=== PATIENT | male | born 1975 | race African-American/Black ===

== ENCOUNTER 2017-10-13 13:43 | Emergency (ER) | payer OTHER ==
[~2017-10-13] VITALS: Ht 167.6 cm; Wt 95.3 kg
[2017-10-13] MEDS ORDERED: METFORMIN HCL500 M1 ORAL (13:53)
[2017-10-13 14:13] VITALS: BP 171/108
--- NOTE | 2017-10-13 14:21 | Emergency Room Report ---
History of Present Illness General Chief Complaint: Male Urogenital Problems Source: Patient Present Illness HPI 41-year-old male presents to the emergency department complaining of dysuria since yesterday that he rates as 5/10 in severity describes burning sensation with urination. Patient denies hematuria or frequency. Patient states he has a history of diabetes however he states his sugars have been well controlled. Patient reports that he takes insulin. Patient denies fevers, chills or low back pain. Patient denies testicular pain or swelling. Patient reports unprotected intercourse only with his . Patient denies penile discharge or swollen tender lymph nodes. he denies rash. he states the onset of his symptoms was after he had to hold his urine for long period of time yesterday. Denies CP, Palpitations, LOC, AMS, dizziness, Changes in Vision, Sensation, paresthesias, or a sudden severe headache. Allergies: Coded Allergies: SULFAMETHOXAZOLE (Verified Allergy, Unknown, 10/13/17) itching TRIMETHOPRIM (Verified Allergy, Unknown, 10/13/17) itching Patient History Past Medical History: see triage record Past Surgical History: none Pertinent Family History: none Reviewed Nursing Documentation: PMH: Agreed, PSxH: Agreed Nursing Documentation-PMH Past Medical History: No History, Except For Hx Hypertension: Yes Hx Diabetes: Yes Review of Systems All Other Systems: negative except mentioned in HPI Physical Exam Vital Signs Date Time Temp Pulse Resp B/P (MAP) Pulse Ox O2 Delivery O2 Flow Rate FiO2 10/13/17 13:49 98.3 86 16 173/111 96 Room Air 98.2 Sp02 EP Interpretation: reviewed, normal General Appearance: no apparent distress, alert, GCS 15, non-toxic Head: normocephalic, atraumatic ENT: hearing grossly normal, normal voice Neck: full range of motion Respiratory: lungs clear, normal breath sounds, speaking full sentences Cardiovascular #1: regular rate, rhythm Genitourinary: normal inspection, no CVA tenderness Musculoskeletal: back normal, gait/station normal, normal range of motion, non- tender Neurologic: alert, oriented x3, responsive, motor strength/tone normal, sensory intact, speech normal, grossly normal Psychiatric: judgement/insight normal Skin: normal color, no rash, warm/dry, well hydrated Lymphatic: no adenopathy Medical Decision Making PA Attestation Dr. velásquez is my supervising Physician whom patient management has been discussed with. Diagnostic Impression: Primary Impression: Dysuria ER Course 41-year-old male presents to the emergency department complaining of dysuria since yesterday that he rates as 5/10 in severity describes burning sensation with urination. Patient denies hematuria or frequency. Patient states he has a history of diabetes however he states his sugars have been well controlled. Patient reports that he takes insulin. Patient denies fevers, chills or low back pain. Patient denies testicular pain or swelling. Patient reports unprotected intercourse only with his . Patient denies penile discharge or swollen tender lymph nodes. he denies rash. he states the onset of his symptoms was after he had to hold his urine for long period of time yesterday. Denies CP, Palpitations, LOC, AMS, dizziness, Changes in Vision, Sensation, paresthesias, or a sudden severe headache. Ddx considered but are not limited to UTi , Urethritis, LGV, STI, Stone, Cystitis, prostatitis Vital signs: are WNL, pt. is afebrile H&PE are most consistent with Dysuria in person over age of 35. ORDERS: - UA : Most indicative of contamination: presence of equal amounts of bacteria and squamous cells, no elevation in inflammatory markers, nitrite negative. ED INTERVENTIONS: Pyridium PO - Pt. declines STD prophylaxis. DISCHARGE: At this time pt. is stable for d/c to home. Will provide printed patient care instructions, and any necessary prescriptions. Care plan and follow up instructions have been discussed with the patient prior to discharge. Labs Test 10/13/17 14:15 Urine Color Pale yellow Urine Appearance Clear Urine pH 6 (4.5-8.0) Urine Specific [place] 1.020 (1.005-1.035) Urine Protein Negative (NEGATIVE) Urine Glucose (UA) 2+ (NEGATIVE) Urine Ketones Negative (NEGATIVE) Urine Occult Blood 1+ (NEGATIVE) Urine Nitrite Negative (NEGATIVE) Urine Bilirubin Negative (NEGATIVE) Urine Urobilinogen Normal MG/DL (0.0-1.0) Urine Leukocyte Esterase Negative (NEGATIVE) Urine RBC 0-2 /HPF (0 - 0) Urine WBC 0-2 /HPF (0 - 0) Urine Squamous Epithelial Cells Occasional /LPF Urine Bacteria Occasional /HPF (NONE) Last Vital Signs Date Time Temp Pulse Resp B/P (MAP) Pulse Ox O2 Delivery O2 Flow Rate FiO2 10/13/17 14:13 98.0 77 16 171/108 96 Room Air 98.0 Disposition: HOME, SELF-CARE Condition: Stable Scripts Phenazopyridine Hcl* (PYRIDIUM*) 200 Mg Tablet 200 MG ORAL THREE TIMES A DAY for 3 Days, #9 TAB 0 Refills Prov: Gaby Blum 10/13/17 Patient Instructions: Dysuria Additional Instructions: Take medications as directed. Pyridium will cause your urine to change color (Red/[place]), this is a normal side effect of the medication. Follow up with a Primary Care Provider in 3-5 days, even if your symptoms have resolved. --Please review list of primary care clinics, if you do not already have a primary care provider Return sooner to ED if new symptoms occur, or current symptoms become worse. - Please note that this Emergency Department Report was dictated using [employer] administrator technology software, occasionally this can lead to erroneous entry secondary to interpretation by the dictation equipment. Gaby Blum Oct 13, 2017 14:21
[2017-10-13] MEDS ORDERED: Phenazopyridine 200mg tab ORAL ONE (14:30)
[2017-10-13 14:44] LABS: APPEARANCE,URINE CLEAR; BILIRUBIN, URINE NEGATIVE (NEGATIVE); COLOR,URINE PALE YELLOW; GLUCOSE, URINE (UA) 2+ (NEGATIVE); KETONES,URINE NEGATIVE (NEGATIVE); LEUKOCYTE ESTERASE ,URINE NEGATIVE (NEGATIVE); NITRITE,URINE NEGATIVE (NEGATIVE); PH,URINE 6 (4.5-8.0); PROTEIN,URINE NEGATIVE (NEGATIVE); UROBILINOGEN,URINE NORMAL MG/DL (0.0-1.0)
[2017-10-13] MEDS ORDERED: PHENAZOPYRIDIN200 MG ORAL (15:06)
[2017-10-13 15:17] VITALS: BP 181/109
== END 2017-10-13 15:17 | disposition home or self-care (01) ==
LOC: EMR 14:25
DX: R30.0 Dysuria (principal); I10 Essential (primary) hypertension; E11.9 Type 2 diabetes mellitus without complications; Z88.2 Allergy status to sulfonamides
CPT/HCPCS: 81003; 99283

== ENCOUNTER 2017-10-22 15:19 | Emergency (ER) | payer OTHER ==
[~2017-10-22] VITALS: Ht 170.2 cm; Wt 116.1 kg
[~2017-10-22 15:19] MED LIST: METFORMIN HCL500 M1 ORAL; PHENAZOPYRIDIN200 MG ORAL
[2017-10-22] MEDS ORDERED: COZAAR50 MG ORAL (15:56)
[2017-10-22 16:36] LABS: APPEARANCE,URINE CLEAR; BILIRUBIN, URINE NEGATIVE (NEGATIVE); COLOR,URINE YELLOW; GLUCOSE, URINE (UA) NEGATIVE (NEGATIVE); KETONES,URINE NEGATIVE (NEGATIVE); LEUKOCYTE ESTERASE ,URINE 1+ (NEGATIVE); NITRITE,URINE NEGATIVE (NEGATIVE); PH,URINE 6 (4.5-8.0); PROTEIN,URINE 2+ (NEGATIVE); UROBILINOGEN,URINE 1 MG/DL (0.0-1.0)
[2017-10-22] MEDS ORDERED: METRONIDAZOLE500 MG ORAL (17:16)
[2017-10-22] MEDS ORDERED: KEFLEX500 MG ORAL (17:16)
[2017-10-22 17:35] VITALS: BP 157/109
--- NOTE | 2017-10-23 15:28 | Emergency Room Report ---
History of Present Illness General Chief Complaint: Headache Source: Patient Present Illness HPI 41-year-old male presents ED for evaluation. Patient is complaining of headache 1 week. Was seen here approximately one week ago for headache and dysuria. Was prescribed Pyridium. States his urine is now red. States headache persists. Throbbing, 5 out of 10, nonradiating. Denies photophobia or blurry vision. Denies nausea or vomiting. Denies neck stiffness. States that his also has similar presentation and dysuria. Also noticing some discharge. She is here being evaluated by the PA. No other aggravating or relieving factors. Denies any other associated symptoms Allergies: Coded Allergies: SULFAMETHOXAZOLE (Verified Allergy, Unknown, 10/13/17) itching TRIMETHOPRIM (Verified Allergy, Unknown, 10/13/17) itching Patient History Past Medical History: DM, HTN Past Surgical History: none Pertinent Family History: none Social History: Denies: smoking, alcohol use, drug use Immunizations: UTD Reviewed Nursing Documentation: PMH: Agreed, PSxH: Agreed Nursing Documentation-PMH Hx Hypertension: Yes Hx Diabetes: Yes Review of Systems All Other Systems: negative except mentioned in HPI Physical Exam Vital Signs Date Time Temp Pulse Resp B/P (MAP) Pulse Ox O2 Delivery O2 Flow Rate FiO2 10/22/17 15:47 98.9 88 16 152/110 95 Room Air 99.0 Sp02 EP Interpretation: reviewed, normal General Appearance: no apparent distress, alert, GCS 15, non-toxic Head: normocephalic, atraumatic Eyes: bilateral eye normal inspection, bilateral eye PERRL ENT: hearing grossly normal, normal pharynx, no angioedema, normal voice Neck: full range of motion, supple/symm/no masses Respiratory: chest non-tender, lungs clear, normal breath sounds, speaking full sentences Cardiovascular #1: regular rate, rhythm, no edema Cardiovascular #2: 2+ carotid (R), 2+ carotid (L), 2+ radial (R), 2+ radial (L) , 2+ dorsalis pedis (R), 2+ dorsalis pedis (L) Gastrointestinal: normal bowel sounds, non tender, soft, non-distended, no guarding, no rebound Rectal: deferred Genitourinary: normal inspection, no CVA tenderness Musculoskeletal: back normal, gait/station normal, normal range of motion, non- tender Neurologic: alert, oriented x3, responsive, motor strength/tone normal, sensory intact, speech normal Psychiatric: judgement/insight normal, memory normal, mood/affect normal, no suicidal/homicidal ideation Reflexes: 3+ bicep (R), 3+ bicep (L), 3+ tricep (R), 3+ tricep (L), 3+ knee (R) , 3+ knee (L) Skin: normal color, no rash, warm/dry, well hydrated Lymphatic: no adenopathy Medical Decision Making Diagnostic Impression: Primary Impression: UTI (urinary tract infection) Qualified Codes: N39.0 - Urinary tract infection, site not specified ER Course Hospital Course 41year-old male presents to ED complaining of dysuria with headache Differential diagnoses include: UTI, cystitis, pyelonephritis Clinical course Patient placed on stretcher. After initial history and physical I ordered UA UA + bacteria. Patient's is being evaluated by PA. Given the discharge she is experiencing is concern for BV and will prescribe Flagyl. I will also prescribe Flagyl to the patient along with antibiotics Diagnosis - UTI Stable and discharged home with prescriptions for Rx Keflex, Flagyl. Instructed to followup with PMD. Return to ED if symptoms recur or worsen Labs Test 10/22/17 16:19 Urine Color Yellow Urine Appearance Clear Urine pH 6 (4.5-8.0) Urine Specific [place] 1.020 (1.005-1.035) Urine Protein 2+ (NEGATIVE) Urine Glucose (UA) Negative (NEGATIVE) Urine Ketones Negative (NEGATIVE) Urine Occult Blood 2+ (NEGATIVE) Urine Nitrite Negative (NEGATIVE) Urine Bilirubin Negative (NEGATIVE) Urine Urobilinogen 1 MG/DL (0.0-1.0) Urine Leukocyte Esterase 1+ (NEGATIVE) Urine RBC 2-4 /HPF (0 - 0) Urine WBC 2-4 /HPF (0 - 0) Urine Squamous Epithelial Cells None /LPF (NONE/OCC) Urine Bacteria Few /HPF (NONE) Last Vital Signs Date Time Temp Pulse Resp B/P (MAP) Pulse Ox O2 Delivery O2 Flow Rate FiO2 10/22/17 17:35 36.24848 85 18 157/109 95 Room Air 208.6 Status: improved Disposition: HOME, SELF-CARE Condition: Stable Scripts Metronidazole* (FLAGYL*) 500 Mg Tablet 500 MG ORAL THREE TIMES A DAY, #21 TAB Prov: OPAL LYNCH M.D. 10/22/17 Cephalexin* (KEFLEX*) 500 Mg Capsule 500 MG ORAL Q6H, #28 CAP 0 Refills Prov: OPAL LYNCH M.D. 10/22/17 Referrals: Anh SILVAREFERRING (PCP) Patient Instructions: Dysuria OPAL LYNCH M.D. Oct 23, 2017 15:28
== END 2017-10-22 17:40 | disposition home or self-care (01) ==
LOC: EMR 17:36
DX: N39.0 Urinary tract infection, site not specified (principal); R51 Headache; I10 Essential (primary) hypertension; E11.9 Type 2 diabetes mellitus without complications; Z88.2 Allergy status to sulfonamides
CPT/HCPCS: 81003; 99284

== ENCOUNTER 2017-11-26 11:51 | Emergency (ER) | payer OTHER ==
[~2017-11-26] VITALS: Ht 170.2 cm; Wt 95.3 kg
[~2017-11-26 11:51] MED LIST changes: +COZAAR50 MG ORAL; +KEFLEX500 MG ORAL; +METRONIDAZOLE500 MG ORAL
[2017-11-26] MEDS ORDERED: LANTUS SOL100 UNIT/1 SUBQ (11:59)
[2017-11-26] MEDS ORDERED: PRAVACHOL40 MG ORAL (11:59)
[2017-11-26 12:16] VITALS: BP 160/97
--- NOTE | 2017-11-26 12:20 | Emergency Room Report ---
History of Present Illness General Chief Complaint: Eye Problems Source: Patient, Medical Record Present Illness HPI 42-year-old male presents to the emergency department complaining of left eyelid swelling, increased lacrimation and intermittent blurry vision due to tearing. Patient denies pain he denies itching at the moment states he had some earlier. Denies discharge or tenderness. Patient reports that yesterday he noticed that his eyelid was very red. Pt does not recall anything getting into his eyes. Patient denies recent URI. Denies: Scleral Redness, Loss of vision, Floaters, Flashing lights, or Diplopia. Allergies: Coded Allergies: SULFAMETHOXAZOLE (Verified Allergy, Unknown, 10/13/17) itching TRIMETHOPRIM (Verified Allergy, Unknown, 10/13/17) itching Patient History Past Medical History: see triage record Past Surgical History: none Pertinent Family History: none Reviewed Nursing Documentation: PMH: Agreed; PSxH: Agreed Nursing Documentation-PMH Past Medical History: No History, Except For Hx Hypertension: Yes Hx Diabetes: Yes Review of Systems All Other Systems: negative except mentioned in HPI Physical Exam Vital Signs Date Time Temp Pulse Resp B/P (MAP) Pulse Ox O2 Delivery O2 Flow Rate FiO2 11/26/17 11:55 98.1 72 18 160/97 95 Room Air 98.1 Sp02 EP Interpretation: reviewed, normal General Appearance: no apparent distress, alert, GCS 15, non-toxic Head: normocephalic, atraumatic Eyes: bilateral eye normal inspection, bilateral eye PERRL, bilateral eye EOMI , bilateral eye other - 20/20 bilaterally, Lid Flip exam was un-remarkable, no erythema noted. edema of the upperlid which disperses with pressure. ENT: hearing grossly normal, normal voice Neck: full range of motion Respiratory: lungs clear, normal breath sounds, speaking full sentences Cardiovascular #1: regular rate, rhythm Musculoskeletal: back normal, gait/station normal, normal range of motion, non- tender Neurologic: alert, oriented x3, responsive, motor strength/tone normal, sensory intact, speech normal, grossly normal Psychiatric: judgement/insight normal Skin: normal color, no rash, warm/dry, well hydrated Lymphatic: no adenopathy Medical Decision Making PA Attestation Dr. Coffey is my supervising Physician whom patient management has been discussed with. Diagnostic Impression: Primary Impression: Blepharitis of left upper eyelid Qualified Codes: H01.004 - Unspecified blepharitis left upper eyelid ER Course 42-year-old male presents to the emergency department complaining of left eyelid swelling, increased lacrimation and intermittent blurry vision due to tearing. Patient denies pain he denies itching, discharge or tenderness. Patient reports that yesterday he noticed that his eyelid was very red. Patient denies recent URI.Denies: Scleral Redness, Loss of vision, Floaters, Flashing lights, or Diplopia. - Pt Denies Contact lens use. Ddx considered but are not limited to: corneal abrasion, acute glaucoma, globe rupture, FB, Corneal Ulcer, conjunctivitis. Iridis Vital signs: are WNL, pt. is afebrile H&PE are most consistent with: corneal abrasion ORDERS: -None required at this time, the dx is clinical. ED INTERVENTIONS: none at this time. d/w pt. conservative treatment, and to follow up with a primary care provider or child nurse. pt given a list of primary care clinics for follow up. d/w pt. to return to the ED with worsening or new symptoms. DISCHARGE: At this time pt. is stable for d/c to home. Will provide printed patient care instructions, and any necessary prescriptions. Care plan and follow up instructions have been discussed with the patient prior to discharge. . Last Vital Signs Date Time Temp Pulse Resp B/P (MAP) Pulse Ox O2 Delivery O2 Flow Rate FiO2 11/26/17 12:16 98.1 18 160/97 95 Room Air 98.1 11/26/17 11:55 72 Disposition: HOME, SELF-CARE Condition: Stable Scripts Erythromycin Base (Erythromycin) 1 Gm Oint...g. 1 APPLIC OP TID for 7 Days, #1 GM Prov: Gaby Blum P.A. 11/26/17 Diphenhydramine Hcl (BENADRYL ALLERGY) 25 Mg Tablet 25 MG PO Q6HR for 2 Days, #10 TAB Prov: Gaby Blum P.A. 11/26/17 Olopatadine Hcl (PATADAY) 2.5 Ml Drops 1 DROP OP DAILY, #2.5 ML Prov: Gaby Blum P.A. 11/26/17 Patient Instructions: Blepharitis Additional Instructions: Take medications as directed. Follow up with a Primary Care Provider or [employer]ified [employer] Workers In [employer] Care in 3 days, even if your symptoms have resolved. --Please review list of primary care clinics, if you do not already have a primary care provider Return sooner to ED if new symptoms occur, or current symptoms become worse. Do not drink alcohol, drive, or operate heavy machinery while taking benadryl as this may cause drowsiness. - Please note that this Emergency Department Report was dictated using [employer] administrator technology software, occasionally this can lead to erroneous entry secondary to interpretation by the dictation equipment. Gaby Blum Nov 26, 2017 12:20
[2017-11-26] MEDS ORDERED: BENADRYL ALLERG25 M1 PO (12:37)
[2017-11-26] MEDS ORDERED: PATADAY2.5 ML OP (12:37)
[2017-11-26] MEDS ORDERED: ERYTHROMYCIN1 G1 OP (12:37)
[2017-11-26 12:55] VITALS: BP 154/91
== END 2017-11-26 12:55 | disposition home or self-care (01) ==
LOC: EMR 12:45
DX: H01.004 Unspecified blepharitis left upper eyelid (principal); I10 Essential (primary) hypertension; E11.9 Type 2 diabetes mellitus without complications; Z88.2 Allergy status to sulfonamides
CPT/HCPCS: 99284

== ENCOUNTER 2018-07-31 13:26 | Emergency (ER) | payer OTHER ==
[~2018-07-31] VITALS: Ht 170.2 cm; Wt 90.7 kg
[~2018-07-31 13:26] MED LIST changes: +BENADRYL ALLERG25 M1 PO; +ERYTHROMYCIN1 G1 OP; +LANTUS SOL100 UNIT/1 SUBQ; +PATADAY2.5 ML OP; +PRAVACHOL40 MG ORAL
[2018-07-31 13:55] VITALS: BP 149/86
[2018-07-31] MEDS ORDERED: Dexamethasone 4mg/ml vial IM ONE (14:45)
[2018-07-31] MEDS ORDERED: Ketorolac 30mg Inj IM ONE (14:45)
--- NOTE | 2018-07-31 14:51 | Emergency Room Report ---
History of Present Illness General Chief Complaint: Fever Source: Patient Present Illness HPI 42-year-old male presents to the emergency department complaining of 10 out of 10 severity sore throat with body aches and fever since this morning. Patient denies recent travel or ill contacts. Patient does state that his daughter is very young and usually gets other family members sick without having symptoms herself. Patient denies neck pain or stiffness he denies photophobia, dizziness , nausea or vomiting. His pain is exacerbated upon swallowing. He denies cough. Denies ear pain, Denies Cp, Palpitations, LOC, AMS, seizures, paresthesias, or changes in Hearing or vision, no Sudden severe BARRIOS. Denies hx of smoking, asthma or COPD. Allergies: Coded Allergies: SULFAMETHOXAZOLE (Verified Allergy, Unknown, 10/13/17) itching TRIMETHOPRIM (Verified Allergy, Unknown, 10/13/17) itching Patient History Past Medical History: see triage record Past Surgical History: none Pertinent Family History: none Reviewed Nursing Documentation: PMH: Agreed; PSxH: Agreed Nursing Documentation-PMH Past Medical History: No History, Except For Hx Hypertension: Yes Hx Diabetes: Yes Review of Systems All Other Systems: negative except mentioned in HPI Physical Exam Vital Signs Date Time Temp Pulse Resp B/P (MAP) Pulse Ox O2 Delivery O2 Flow Rate FiO2 07/31/18 13:42 102.9 100 18 154/88 97 Room Air Sp02 EP Interpretation: reviewed, normal General Appearance: alert, GCS 15, non-toxic, mild distress Head: normocephalic, atraumatic Eyes: bilateral eye normal inspection, bilateral eye PERRL ENT: hearing grossly normal, normal voice, uvula midline, moist mucus membranes , tonsillar swelling, pharyngeal erythema Neck: full range of motion Respiratory: lungs clear, normal breath sounds, no wheezing, speaking full sentences Cardiovascular #1: regular rate, rhythm Musculoskeletal: back normal, gait/station normal, normal range of motion, non- tender Neurologic: alert, oriented x3, responsive, motor strength/tone normal, sensory intact, normal gait, speech normal, grossly normal Psychiatric: judgement/insight normal Skin: normal color, no rash, warm/dry, well hydrated Medical Decision Making PA Attestation Dr. Sage is my supervising Physician whom patient management has been discussed with. Diagnostic Impression: Primary Impression: Pharyngitis, acute Qualified Codes: J02.0 - Streptococcal pharyngitis ER Course 42-year-old male presents to the emergency department complaining of 10 out of 10 severity sore throat with body aches and fever since this morning. Patient denies recent travel or ill contacts. Patient does state that his daughter is very young and usually gets other family members sick without having symptoms herself. Patient denies neck pain or stiffness he denies photophobia, dizziness , nausea or vomiting. His pain is exacerbated upon swallowing. He denies cough. Denies ear pain, Denies Cp, Palpitations, LOC, AMS, seizures, paresthesias, or changes in Hearing or vision, no Sudden severe BARRIOS. Denies hx of smoking, asthma or COPD. Ddx considered but are not limited to: pharyngitis, strep, PAYROLL MACHINE OPERATOR, ludwigs angina, URI Vital signs: are WNL, patient is febrile. H&PE are most consistent with: pharyngitis presumed strep. ORDERS: None required at this time as the diagnosis is clinical ED INTERVENTIONS: -Decadron 8mg IM -Toradol 20mg IM -Tylenol PO DISCHARGE: At this time pt. is stable for d/c to home. Will provide printed patient care instructions, and any necessary prescriptions. Care plan and follow up instructions have been discussed with the patient prior to discharge. Last Vital Signs Date Time Temp Pulse Resp B/P (MAP) Pulse Ox O2 Delivery O2 Flow Rate FiO2 07/31/18 13:55 99.3 98 18 149/86 99 Room Air Disposition: HOME, SELF-CARE Condition: Stable Scripts Lidocaine HCl 2% Viscous (Lidocaine HCl 2% Viscous) 100 Ml Solution 10 ML ORAL QID PRN for For Pain, #220 ML Prov: Gaby Blum 07/31/18 Ibuprofen* (MOTRIN*) 600 Mg Tablet 600 MG ORAL THREE TIMES A DAY, #30 TAB 0 Refills Prov: Gaby Blum 07/31/18 Acetaminophen* (TYLENOL EXTRA STRENGTH*) 500 Mg Tablet 500 MG ORAL Q6H PRN for Mild Pain/Temp > 100.5, #20 TAB 0 Refills Prov: Gaby Blum 07/31/18 Amoxicillin/Potassium Clav 875-125* (AUGMENTIN 875-125 TABLET*) 1 Each Tablet 1 TAB ORAL TWICE A DAY for 10 Days, #20 TAB Prov: Gaby Blum 07/31/18 Referrals: NON PHYSICIAN (PCP) Departure Forms: Return to Work Return to Work Date: Aug 05, 2018 Work Restrictions: None Other Restrictions: May return Sooner if Symptoms have resolved. Return to Full Activity: Aug 05, 2018 Patient Instructions: Fever, Adult, [id number], Pharyngitis, [id number] Additional Instructions: Take medications as directed. Follow up with a Primary Care Provider in 3-5 days, even if your symptoms have resolved. --Please review list of primary care clinics, if you do not already have a primary care provider Return sooner to ED if new symptoms occur, or current symptoms become worse. - Please note that this Emergency Department Report was dictated using [employer] inspector technology software, occasionally this can lead to erroneous entry secondary to interpretation by the dictation equipment. Gaby Blum Jul 31, 2018 14:51
[2018-07-31] MEDS ORDERED: IBUPROFEN600 MG ORAL (15:14)
[2018-07-31] MEDS ORDERED: AUGMENTIN 875-1 EAC1 ORAL (15:14)
[2018-07-31] MEDS ORDERED: TYLENOL EXTRA500 MG ORAL (15:14)
[2018-07-31] MEDS ORDERED: LIDOCAINE VISC100 ML ORAL (15:14)
[2018-07-31 15:22] VITALS: BP 146/87
== END 2018-07-31 15:25 | disposition home or self-care (01) ==
LOC: EMR 14:20
DX: J02.9 Acute pharyngitis, unspecified (principal); I10 Essential (primary) hypertension; E11.9 Type 2 diabetes mellitus without complications; Z88.2 Allergy status to sulfonamides
CPT/HCPCS: 96374; 96375; 99284; J1100; J1885

== ENCOUNTER 2018-09-13 17:06 | Emergency (ER) | payer OTHER ==
[~2018-09-13] VITALS: Ht 170.2 cm; Wt 93.0 kg
[~2018-09-13 17:06] MED LIST changes: +AUGMENTIN 875-1 EAC1 ORAL; +IBUPROFEN600 MG ORAL; +LIDOCAINE VISC100 ML ORAL; +TYLENOL EXTRA500 MG ORAL
[2018-09-13 17:19] VITALS: BP 148/90
[2018-09-13] MEDS ORDERED: ASPIR 8181 MG ORAL (17:24)
[2018-09-13] MEDS ORDERED: GLIPIZIDE5 MG ORAL (17:24)
[2018-09-13 17:59] LABS: ANION GAP 6 mmol/L (5-15); BLOOD UREA NITROGEN 11 mg/dL (7-18); CALCIUM 8.3 MG/DL (8.5-10.1); CARBON DIOXIDE 30 MMOL/L (21-32); CHLORIDE 107 MMOL/L (98-107); CREATININE 1.4 MG/DL (0.55-1.30); POTASSIUM 2.9 MMOL/L (3.5-5.1); SODIUM 142 MMOL/L (136-145)
[2018-09-13 18:02] LABS: BASOPHILS % (AUTO) 1.3 % (0.0-2.0); EOSINOPHILS % (AUTO) 2.7 % (0.0-3.0); HEMATOCRIT 41.4 % (42.0-52.0); HEMOGLOBIN 13.3 G/DL (14.2-18.0); LYMPHOCYTES % (AUTO) 38.5 % (20.0-45.0); MEAN CORPUSCULAR VOLUME 76 FL (80-99); MONOCYTES % (AUTO) 8.8 % (1.0-10.0); NEUTROPHILS % (AUTO) 48.7 % (45.0-75.0); PLATELET COUNT 350 K/UL (150-450); RED BLOOD COUNT 5.42 M/UL (4.70-6.10); RED CELL DISTRIBUTION WIDTH 12.6 % (11.6-14.8); WHITE BLOOD COUNT 10.3 K/UL (4.8-10.8)
[2018-09-13 18:04] LABS: ALANINE AMINOTRANSFERASE 48 U/L (12-78); ALBUMIN 3.8 G/DL (3.4-5.0); ALBUMIN/GLOBULIN RATIO 0.9 (1.0-2.7); ALKALINE PHOSPHATASE 75 U/L (46-116); ASPARTATE AMINO TRANSFERASE 21 U/L (15-37); BILIRUBIN,TOTAL 0.6 MG/DL (0.2-1.0)
[2018-09-13] MEDS ORDERED: RANITIDINE HCL150 MG ORAL (18:39)
[2018-09-13 18:46] VITALS: BP 137/85
--- NOTE | 2018-09-13 23:05 | Emergency Room Report ---
History of Present Illness General Chief Complaint: General Complaint Source: Patient, Medical Record Present Illness HPI 42-year-old male presents ED for evaluation. States that he cannot taste anything with his tongue for the last week. Denies any slurred speech or facial droop. Denies any arm or leg weakness. Denies any neck pain blurry vision. States he's been having episodes of nausea and vomiting for the last week. Has not had any vomiting last few days. Feels nauseous. History of acid reflux. Denies abdominal pain. No other aggravating relieving factors. Denies any other associated symptoms Allergies: Coded Allergies: SULFAMETHOXAZOLE (Verified Allergy, Unknown, 10/13/17) itching TRIMETHOPRIM (Verified Allergy, Unknown, 10/13/17) itching Patient History Past Medical History: DM Past Surgical History: none Pertinent Family History: none Social History: Denies: smoking, alcohol use, drug use Immunizations: UTD Reviewed Nursing Documentation: PMH: Agreed; PSxH: Agreed Nursing Documentation-PMH Past Medical History: No History, Except For Hx Hypertension: Yes - high cholesterol Hx Diabetes: Yes Review of Systems All Other Systems: negative except mentioned in HPI Physical Exam Vital Signs Date Time Temp Pulse Resp B/P (MAP) Pulse Ox O2 Delivery O2 Flow Rate FiO2 09/13/18 17:19 98.8 18 148/90 96 Room Air 09/13/18 17:19 83 Sp02 EP Interpretation: reviewed, normal General Appearance: no apparent distress, alert, GCS 15, non-toxic Head: normocephalic, atraumatic Eyes: bilateral eye normal inspection, bilateral eye PERRL ENT: hearing grossly normal, normal pharynx, no angioedema, normal voice Neck: full range of motion, supple/symm/no masses Respiratory: chest non-tender, lungs clear, normal breath sounds, speaking full sentences Cardiovascular #1: regular rate, rhythm, no edema Cardiovascular #2: 2+ carotid (R), 2+ carotid (L), 2+ radial (R), 2+ radial (L) , 2+ dorsalis pedis (R), 2+ dorsalis pedis (L) Gastrointestinal: normal bowel sounds, non tender, soft, non-distended, no guarding, no rebound Rectal: deferred Genitourinary: normal inspection, no CVA tenderness Musculoskeletal: back normal, gait/station normal, normal range of motion, non- tender Neurologic: alert, oriented x3, responsive, boiler house inspector III-XII nml as tested, motor strength/tone normal, sensory intact, speech normal Psychiatric: judgement/insight normal, memory normal, mood/affect normal, no suicidal/homicidal ideation Reflexes: 3+ bicep (R), 3+ bicep (L), 3+ tricep (R), 3+ tricep (L), 3+ knee (R) , 3+ knee (L) Skin: normal color, no rash, warm/dry, well hydrated Lymphatic: no adenopathy Medical Decision Making Diagnostic Impression: Primary Impression: Ageusia Additional Impression: Hypokalemia ER Course Hospital Course 42 yo M presents with nausea, vomiting. no taste with tongue x 1 week differential diagnosis: gastritis, SBO, cholecystits Clinical course Patient placed on stretcher. On laboratory monitor. After initial history, physical exam reveals middle-aged male in no acute distress. Cranial nerves II through XII grossly intact. No slurred speech or facial droop. Motor strength 5 out of 5 in all extremities. No sensory deficits I ordered labs, IV fluids, zofran, EKG Labs - no leukocytosis, K 2.9, LFTs normal Potassium repleted. Discussed findings with patient. I do not suspect CVA . There is no acute neurological deficit. Lack of taste can be secondary to untreated GERD. We will discharge with Zofran, Zantac. We will provide GI referrals. Safe for discharge close outpatient follow-up I feel this is a highly complex case requiring extensive working including EKG/ Rhythm strip, Xray/CT/US, Blood/urine lab work, repeat exams while in ED, and administration of strong opiates/narcotics for pain control, admission to hospital or close patient follow up. Diagnosis - ageusia, hypokalemia Stable and discharged to home with prescriptions for Zantac. Followup with PMD/ GI. Return to ED if symptoms recur or worsen Labs Test 09/13/18 17:40 White Blood Count 10.3 K/UL (4.8-10.8) Red Blood Count 5.42 M/UL (4.70-6.10) Hemoglobin 13.3 G/DL (14.2-18.0) Hematocrit 41.4 % (42.0-52.0) Mean Corpuscular Volume 76 FL (80-99) Mean Corpuscular Hemoglobin 24.5 PG (27.0-31.0) Mean Corpuscular Hemoglobin Concent 32.2 G/DL (32.0-36.0) Red Cell Distribution Width 12.6 % (11.6-14.8) Platelet Count 350 K/UL (150-450) Mean Platelet Volume 5.7 FL (6.5-10.1) Neutrophils (%) (Auto) 48.7 % (45.0-75.0) Lymphocytes (%) (Auto) 38.5 % (20.0-45.0) Monocytes (%) (Auto) 8.8 % (1.0-10.0) Eosinophils (%) (Auto) 2.7 % (0.0-3.0) Basophils (%) (Auto) 1.3 % (0.0-2.0) Sodium Level 142 MMOL/L (136-145) Potassium Level 2.9 MMOL/L (3.5-5.1) Chloride Level 107 MMOL/L (98-107) Carbon Dioxide Level 30 MMOL/L (21-32) Anion Gap 6 mmol/L (5-15) Blood Urea Nitrogen 11 mg/dL (7-18) Creatinine 1.4 MG/DL (0.55-1.30) Estimat Glomerular Filtration Rate > 60 mL/min (>60) Glucose Level 129 MG/DL (74-106) Calcium Level 8.3 MG/DL (8.5-10.1) Total Bilirubin 0.6 MG/DL (0.2-1.0) Aspartate Amino Transf (AST/SGOT) 21 U/L (15-37) Alanine Aminotransferase (ALT/SGPT) 48 U/L (12-78) Alkaline Phosphatase 75 U/L (46-116) Total Protein 7.9 G/DL (6.4-8.2) Albumin 3.8 G/DL (3.4-5.0) Globulin 4.1 g/dL Albumin/Globulin Ratio 0.9 (1.0-2.7) Lipase 127 U/L (73-393) EKG Diagnostic Results Rate: normal Rhythm: NSR ST Segments: no acute changes ASA given to the pt in ED: No Rhythm Strip Diag. Results EP Interpretation: yes Rhythm: NSR, no PVC's, no ectopy Last Vital Signs Date Time Temp Pulse Resp B/P (MAP) Pulse Ox O2 Delivery O2 Flow Rate FiO2 09/13/18 18:46 97.5 80 20 137/85 99 Room Air Status: improved Disposition: HOME, SELF-CARE Condition: Stable Scripts Ranitidine Hcl* (ZANTAC*) 150 Mg Tablet 150 MG ORAL TWICE A DAY, #30 TAB Prov: Haresh Malone MD 09/13/18 Referrals: Kassi Reyes MD NON PHYSICIAN (PCP) Jose Angeles MD Patient Instructions: Gastroesophageal Reflux Disease, Adult Haresh Malone MD Sep 13, 2018 23:05
== END 2018-09-13 18:46 | disposition home or self-care (01) ==
LOC: EMR 18:18
DX: R43.2 Parageusia (principal); E87.6 Hypokalemia; E11.9 Type 2 diabetes mellitus without complications; I10 Essential (primary) hypertension; Z88.2 Allergy status to sulfonamides; E78.00 Pure hypercholesterolemia, unspecified
CPT/HCPCS: 36415; 80053; 83690; 85025; 93005; 96374; 99284; J2405; J7040; J8499

== ENCOUNTER 2019-09-19 12:52 | Emergency (ER) | payer OTHER ==
[~2019-09-19] VITALS: Ht 170.2 cm; Wt 99.8 kg
[~2019-09-19 12:52] MED LIST changes: +ASPIR 8181 MG ORAL; +GLIPIZIDE5 MG ORAL; +RANITIDINE HCL150 MG ORAL
--- NOTE | 2019-09-19 13:08 | NUR ---
ED Nurse Note: Patient dose not recall all his medication name.
[2019-09-19 13:22] VITALS: BP 140/78
--- NOTE | 2019-09-19 13:23 | NUR ---
ED Nurse Note:pt. came with flu like symptoms, A/Oz4 ambulatory
[2019-09-19 13:53] VITALS: BP 140/78
--- NOTE | 2019-09-19 13:53 | Emergency Room Report ---
History of Present Illness General Chief Complaint: Upper Respiratory Illness Source: Medical Record Present Illness HPI 43-year-old male presents to the emergency department complaining of 8 out of 10 severity sore throat, cough, nasal congestion, rhinorrhea, mucus production, fatigue body aches for 5 days. Patient reports he has been taking OTC medications however his symptoms are still present. Patient reports history of diabetes and he takes oral medications for glycemic control. He reports decrease in appetite and oral intake. He reports chills denies fevers. He states he did not take any OTC cough/cold or fever medications today prior to arrival. Denies recent travel or ill contacts. Denies ear pain, high fevers, neck pain/stiffness, irritability, photophobia dehydration, N/V/D. Denies Cp, Palpitations, LOC, AMS, seizures, paresthesias, or changes in Hearing or vision , no Sudden severe BARRIOS. Denies hx of smoking, asthma or COPD. Allergies: Coded Allergies: SULFAMETHOXAZOLE (Verified Allergy, Unknown, 10/13/17) itching TRIMETHOPRIM (Verified Allergy, Unknown, 10/13/17) itching Patient History Past Medical History: see triage record Past Surgical History: none Pertinent Family History: none Immunizations: UTD Reviewed Nursing Documentation: PMH: Agreed; PSxH: Agreed Nursing Documentation-PMH Past Medical History: No History, Except For Hx Cardiac Problems: No Hx Hypertension: Yes - high cholesterol Hx Pacemaker: No Hx Asthma: No Hx COPD: No Hx Diabetes: Yes Hx Cancer: No Hx Gastrointestinal Problems: No Hx Dialysis: No History Of Psychiatric Problem: No Hx Neurological Problems: No Hx Cerebrovascular Accident: No Hx Seizures: No Review of Systems All Other Systems: negative except mentioned in HPI Physical Exam Vital Signs Date Time Temp Pulse Resp B/P (MAP) Pulse Ox O2 Delivery O2 Flow Rate FiO2 09/19/19 13:02 98.2 83 16 140/78 (98) 95 Room Air Sp02 EP Interpretation: reviewed, normal General Appearance: no apparent distress, alert, GCS 15, non-toxic Head: normocephalic, atraumatic Eyes: bilateral eye normal inspection, bilateral eye PERRL ENT: hearing grossly normal, no angioedema, normal voice, TMs + canals normal, uvula midline, moist mucus membranes, nasal congestion, tonsillar swelling, pharyngeal erythema, other - no exudates or tonsillar swelling. mild erythema noted. Neck: full range of motion Respiratory: chest non-tender, lungs clear, normal breath sounds, no respiratory distress, no accessory muscle use, no wheezing, speaking full sentences Cardiovascular #1: regular rate, rhythm, no edema Musculoskeletal: normal range of motion, gait/station normal, non-tender Neurologic: alert, motor strength/tone normal, oriented x3, sensory intact, responsive, speech normal Psychiatric: judgement/insight normal Skin: no rash Lymphatic: no adenopathy Medical Decision Making PA Attestation Dr. Villalta Is my supervising Physician whom patient management has been discussed with. Diagnostic Impression: Primary Impression: Viral URI with cough ER Course 43-year-old male presents to the emergency department complaining of 8 out of 10 severity sore throat, cough, nasal congestion, rhinorrhea, mucus production, fatigue body aches for 5 days. Patient reports he has been taking OTC medications however his symptoms are still present. Patient reports history of diabetes and he takes oral medications for glycemic control. He reports decrease in appetite and oral intake. He reports chills denies fevers. He states he did not take any OTC cough/cold or fever medications today prior to arrival. Denies recent travel or ill contacts. Denies ear pain, high fevers, neck pain/stiffness, irritability, photophobia dehydration, N/V/D. Denies Cp, Palpitations, LOC, AMS, seizures, paresthesias, or changes in Hearing or vision , no Sudden severe BARRIOS. Denies hx of smoking, asthma or COPD. Ddx considered but are not limited to URI, pneumonia, PE, strep pharyngitis, meningitis. Vital signs: Pt. is afebrile, the remaining VS are WNL H&PE are most consistent with viral URI- no meningeal signs, oropharynx is not involved other than having PND, no evidence of bacterial infection at this time. Pt. non-toxic in appearance. ORDERS: none required at this time, the diagnosis is clinical ED INTERVENTIONS: None required at this time. --PT. EDUCATION: Discussed antibiotic resistance with inappropriate prescribing of antibiotics for viral illnesses. Discussed signs and symptoms to indicate viral illness versus bacterial illness. DISCHARGE: At this time pt. is stable for d/c to home. Will provide printed patient care instructions, and any necessary prescriptions. Care plan and follow up instructions have been discussed with the patient prior to discharge. Last Vital Signs Date Time Temp Pulse Resp B/P (MAP) Pulse Ox O2 Delivery O2 Flow Rate FiO2 09/19/19 13:22 83 16 Room Air 09/19/19 13:22 98.2 140/78 95 Disposition: HOME, SELF-CARE Condition: Stable Scripts Guaifenesin/Dextromethorphan* (Guaifenesin Dm Syrup*) 5 Ml Syrup 5 ML ORAL Q6H PRN for FOR COUGH, #118 ML Prov: Gaby Blum 09/19/19 Mometasone Furoate (NASONEX) 17 Gm [place].pump 2 SPRAYS NASAL DAILY, #17 GM 0 Refills Prov: Gaby Blum 09/19/19 Referrals: Anh SILVA,REFERRING (PCP) Patient Instructions: Upper Respiratory Infection, Adult Additional Instructions: Take medications as directed. Do not drink alcohol, drive, or operate heavy machinery while taking Cough Syrup as this may cause drowsiness. Follow up with a Primary Care Provider in 3-5 days, even if your symptoms have resolved. Return sooner to ED if new symptoms occur, or current symptoms become worse. - Please note that this Emergency Department Report was dictated using [employer].coergonomics engineer technology software, occasionally this can lead to erroneous entry secondary to interpretation by the dictation equipment. Gaby Blum Sep 19, 2019 13:53
--- NOTE | 2019-09-19 13:55 | NUR ---
ER DISCHARGE NOTE: Patient is cleared to be discharged per ERMD, pt is aox4, on room air, with stable vital signs. pt was given dc and prescription instructions, pt was able to verbalize understanding, pt is able to ambulate with steady gait. pt took all belongings.
[2019-09-19] MEDS ORDERED: NASONEX17 GM NASAL (13:57)
[2019-09-19] MEDS ORDERED: PROMETHAZINE-C118 M1 ORAL (13:57)
[2019-09-19] MEDS ORDERED: MUCINEX1200 MG PO (13:57)
[2019-09-19] MEDS ORDERED: GUAIFENESIN DM118 M1 ORAL (16:18)
== END 2019-09-19 14:09 | disposition home or self-care (01) ==
LOC: EMR 13:29
DX: J06.9 Acute upper respiratory infection, unspecified (principal); R05 Cough; E78.00 Pure hypercholesterolemia, unspecified; E11.9 Type 2 diabetes mellitus without complications; Z88.2 Allergy status to sulfonamides; Z88.1 Allergy status to other antibiotic agents; Z79.84 Long term (current) use of oral hypoglycemic drugs
CPT/HCPCS: 99282

== ENCOUNTER 2020-07-05 07:40 | Emergency (ER) | payer OTHER ==
[~2020-07-05] VITALS: Ht 172.7 cm; Wt 106.6 kg
[~2020-07-05 07:40] MED LIST changes: +GUAIFENESIN DM118 M1 ORAL; +MUCINEX1200 MG PO; +NASONEX17 GM NASAL; +PROMETHAZINE-C118 M1 ORAL
[2020-07-05 07:53] VITALS: BP 124/82
--- NOTE | 2020-07-05 07:55 | NUR ---
ED Nurse Note: Patient walked in to ER from home due to neck and left shoulder pain x 2-3 weeks. Denies recent injury. States he is unable to sleep 4-5 days. Patient AAO x4, VSS at this time.
[2020-07-05] MEDS ORDERED: LIDOCAINE700 M1 TP (07:56)
[2020-07-05] MEDS ORDERED: ROBAXIN-750750 MG PO (07:56)
[2020-07-05] MEDS ORDERED: IBUPROFEN600 M1 ORAL (07:56)
[2020-07-05] MEDS ORDERED: TYLENOL EXTRA500 MG ORAL (07:56)
--- NOTE | 2020-07-05 08:00 | Emergency Room Report ---
History of Present Illness General Chief Complaint: Pain Source: Patient, Medical Record Present Illness HPI Disclaimer: Please note that this report is being documented using [employer] technology. This can lead to erroneous entry secondary to incorrect interpretation by the dictating instrument. HPI: 44-year-old male presents for evaluation neck and shoulder pain/stiffness. Symptoms present for over 1 week. He reports a tenseness over the left shoulder that spread to the left side of the neck and now down the back. Denies ripping or tearing sensation. Denies shortness of breath, chest pain, cough, congestion. No injury reported. Pain is localized over the shoulder and back does not radiate down the arm. Denies numbness, tingling or weakness. Denies injury. Reports limitation in range of motion due to pain/stiffness. Denies fever, chills. Pain is making it difficult for him to sleep. Somewhat relieved by rest. Exacerbated by exertion. PMH: Hypertension, hyperlipidemia PSH: Reviewed Allergies: Bactrim Social Hx: Reviewed Allergies: Coded Allergies: SULFAMETHOXAZOLE (Verified Allergy, Unknown, 10/13/17) itching TRIMETHOPRIM (Verified Allergy, Unknown, 10/13/17) itching COVID-19 Screening Contact w/high risk pt: No Experienced COVID-19 symptoms?: No COVID-19 Testing performed EXTRUSION DIE REPAIR MANAGER: No Nursing Documentation-PMH Past Medical History: No History, Except For Hx Cardiac Problems: No Hx Hypertension: Yes - high cholesterol Hx Pacemaker: No Hx Asthma: No Hx COPD: No Hx Diabetes: Yes Hx Cancer: No Hx Gastrointestinal Problems: No Hx Dialysis: No Hx Neurological Problems: No Hx Cerebrovascular Accident: No Hx Seizures: No Review of Systems All Other Systems: negative except mentioned in HPI Physical Exam Vital Signs Date Time Temp Pulse Resp B/P (MAP) Pulse Ox O2 Delivery O2 Flow Rate FiO2 07/05/20 07:44 98.2 73 15 124/82 (96) 96 Room Air General: Awake and alert, no acute distress HEENT: NC/AT. EOMI. Resp: Normal work of breathing Skin: Intact. No abrasions, laceration or rash over the exposed skin MSK: Normal tone and bulk. Moving all extremities. No obvious deformity. Patient able to abduct left shoulder without pain to 90 degrees. Moderate pain though still able to abduct to 120 degrees. No limitation in range of motion on flexion extension or rotation. Full range of motion without pain in the shoulder, wrist. Neuro: Awake and alert. Mentating appropriately. Sensation intact over the dermatomes of the left upper extremity. Spine: No tenderness, step-off or deformity in the cervical or thoracic spine. There is moderate left-sided paraspinal tenderness extending over the left trapezius muscle. Medical Decision Making Diagnostic Impression: Primary Impression: Back muscle spasm ER Course 44-year-old male presents for evaluation of left-sided neck and shoulder pain/stiffness. No injury reported no evidence of dislocation or acute fracture. Do not believe the patient requires emergent imaging or labs in the ED today. Most consistent with muscle spasm. Neurologically intact. Will start on NSAIDs, Robaxin, lidocaine patches. Patient will follow up with his PMD. Last Vital Signs Date Time Temp Pulse Resp B/P (MAP) Pulse Ox O2 Delivery O2 Flow Rate FiO2 07/05/20 07:53 98.2 15 124/82 96 Room Air 07/05/20 07:44 73 Disposition: HOME, SELF-CARE Condition: Stable Scripts Lidocaine (Lidocaine) 1 Each Adh..patch 700 MG TP DAILY, #20 PATCH Prov: Alejandro Heredia MD 07/05/20 Methocarbamol* (ROBAXIN-750*) 750 Mg Tablet 750 MG PO QID, #28 TAB 0 Refills Prov: Alejandro Heredia MD 07/05/20 Ibuprofen* (MOTRIN*) 600 Mg Tablet 600 MG ORAL Q6H PRN for For Pain, #30 TAB 0 Refills Prov: Alejandro Heredia MD 07/05/20 Acetaminophen* (TYLENOL EXTRA STRENGTH*) 500 Mg Tablet 500 MG ORAL Q6H PRN for Mild Pain/Temp > 100.5, #20 TAB 0 Refills Prov: Alejandro Heredia MD 07/05/20 Patient Instructions: Heat Therapy Additional Instructions: Please follow-up with your primary care doctor in the next 1 to 3 days to discu ss this emergency department visit and for reevaluation. If you have any new or worsening symptoms please return to the emergency department for reevaluation. Please note that this report is being documented using [employer] technology. This can lead to erroneous entry secondary to incorrect interpretation by the dictating instrument. Alejandro Heredia MD Jul 05, 2020 08:00
[2020-07-05 08:02] VITALS: BP 124/82
--- NOTE | 2020-07-05 08:02 | NUR ---
ED Nurse Note: Pt cleared by health care Provider for discharge. DC instructions/prescription was given and explained to pt and verbalized understanding of teachings. All medical deviecs such as ID band removed. Pt is AAO x4, ambulatory and left with all personal belongings.
[2020-07-06] MEDS ORDERED: NARCAN4 MG NS (10:58)
[2020-07-06] MEDS ORDERED: NORCO 5-325 TA1 EAC1 ORAL (10:58)
== END 2020-07-05 08:03 | disposition home or self-care (01) ==
LOC: EMR 07:52
DX: M62.830 Muscle spasm of back (principal); M54.2 Cervicalgia; M25.612 Stiffness of left shoulder, not elsewhere classified; Z88.2 Allergy status to sulfonamides; E78.5 Hyperlipidemia, unspecified; I10 Essential (primary) hypertension; Z88.8 Allergy status to other drugs, medicaments and biological substances; E78.00 Pure hypercholesterolemia, unspecified; E11.9 Type 2 diabetes mellitus without complications
CPT/HCPCS: 99282

== ENCOUNTER 2020-07-06 10:21 | Emergency (ER) | payer OTHER ==
[~2020-07-06] VITALS: Ht 172.7 cm; Wt 106.1 kg
[~2020-07-06 10:21] MED LIST changes: +IBUPROFEN600 M1 ORAL; +LIDOCAINE700 M1 TP; +ROBAXIN-750750 MG PO
--- NOTE | 2020-07-06 10:50 | NUR ---
ED Nurse Note:pt. c/o posterior neck pain for 5 days no injury, he was in ER yesterday
[2020-07-06] MEDS ORDERED: NORCO 5-325 TA1 EAC1 ORAL (10:58)
[2020-07-06] MEDS ORDERED: NARCAN4 MG NS (10:58)
--- NOTE | 2020-07-06 10:59 | Emergency Room Report ---
History of Present Illness General Chief Complaint: Neck Pain Source: Patient Present Illness HPI 44M c/o bilateral shoulder pain and neck pain x 5 days after starting to workout again. Pt noted pain in his shoulders and his neck after doing push ups. Pt states that he is usually out of shape and has been trying to exercise again. He was seen here yesterday and prescribed lido patch, tylenol, and muscle relaxant with no relief. He took his 's norco last night with mild relief . Denies BARRIOS, numbness, tingling, lower back pain, trauma, falls, focal weakness, difficulty walking, CP, abdominal pain, saddle anesthesia, bowel or bladder incontinence. The patient's symptoms were gradual onset, severity was moderate, duration since 5 days. Quality: aching Past medical history: Denies Past surgical history: Denies Smoking: Denies Alcohol use: Denies Drug use: Denies Review of systems: CONST: No fevers or chills, No night sweats PULMONARY: No productive cough, No shortness of breath CARDIAC: No chest pain, No palpitations GI: No vomiting, No diarrhea , No melena_or_BRBPR : No dysuria, No hematuria, No discharge NEURO: No new_focal_weakness_or_numbness, No confusion, No vision changes 14 point Review of Systems is otherwise negative except per HPI Physical Exam: GENERAL: Awake_alert_ nontoxic, no acute distress Spo2 99% on RA -normal EYES: Extraocular muscles are intact. Conjunctivae clear. Lids without swelling ENT: External nose and ear normal_in_appearance. Oropharynx clear. Head_atraumatic, Moist_oral_mucosa NECK: No JVD. No meningismus. No thyromegaly. Supple. Trachea midline. No midline C/T/L deformity or step off RESP: Normal respiratory effort. Symmetric rise. No stridor. Clear_to_auscultation_No_rales_No_wheezes CARDIAC: Regular rate and regular rhytm. No_significant pedal edema. ABDOMEN: Soft. Nondistended. Nontender_No_rebound_or_guarding. No CVA TTP MSK: Normal muscle tone, without rigidity. Extremities without asymmetric deformity or swelling. ++bilateral trapezius hypertonicity. SKIN: Warm and dry. No visible cyanosis or pallor NEUROLOGIC: Alert, oriented x3. Motor_and_sensation_grossly_intact. No truncal ataxia. Gait_normal Psych: Normal mood and affect, normal judgment and insight - COORDINATION OF CARE Case was discussed with: Patient Chart from yesterday was reviewed. Medical Decision Making/Plan: Differential diagnosis includes musculoskeletal pain, muscle spasm / sprain, DOUBT vertebral fracture, spinal epidural abscess, spinal epidural hematoma, pyelonephritis, kidney stone, AAA, among others. Vitals are unremarkable. Patient is afebrile. On exam, pulses are equal and symmetric bilaterally. No focal neurologic deficits noted. No midline spinal step offs or deformities appreciated. The patient has no significant red flags on history or exam. He was found to have hypertonicity to the bilateral trapezius ridges but has no decreased ROM. No nuchal rigidity or limitation of C spine movement in flexion/extension/side bending or rotation. ED intervention included toradol. Patient has no history of malignancy, active or distant history. Patient has no B symptoms: no unintentional weight loss, night sweats, or fevers. No longstanding steroid or other immunosuppressant usage. No mechanism for significant trauma. Patient has no vertebral deformity or midline tenderness and has a normal gait. Patient has no significant risk factors for spinal epidural emergency such as fever, IVDU, HIV, or anticoagulant use. Patient is neurologically intact without any lower extremity weakness / numbness, saddle anesthesia, urinary retention or fecal incontinence. No evidence of any emergent process of the spi nal cord or cauda equina at this time. The patients symptoms appear consistent with a musculoskeletal origin. The patient was counseled that they need to see their primary medical doctor in the next 1-2 days for reevaluation and further treatment, and to return immediately if symptoms change or worsen. Will DC with short course of norco. Pt advised not to drive while taking norco. Narcan prescription given. Instructions for use were explained. Recommend rest and heating pad. Allergies: Coded Allergies: SULFAMETHOXAZOLE (Verified Allergy, Unknown, 10/13/17) itching TRIMETHOPRIM (Verified Allergy, Unknown, 10/13/17) itching COVID-19 Screening Contact w/high risk pt: No Experienced COVID-19 symptoms?: No COVID-19 Testing performed STR[employer]NER[employer] REPRESENTATIVE: No Nursing Documentation-PMH Past Medical History: No History, Except For Hx Cardiac Problems: No Hx Hypertension: Yes - high cholesterol Hx Pacemaker: No Hx Asthma: No Hx COPD: No Hx Diabetes: Yes Hx Cancer: No Hx Gastrointestinal Problems: No Hx Dialysis: No Hx Neurological Problems: No Hx Cerebrovascular Accident: No Hx Seizures: No Physical Exam Vital Signs Date Time Temp Pulse Resp B/P (MAP) Pulse Ox O2 Delivery O2 Flow Rate FiO2 07/06/20 10:30 97.7 70 16 119/80 (93) 99 Room Air Sp02 EP Interpretation: reviewed, normal Medical Decision Making Diagnostic Impression: Primary Impression: Back muscle spasm Additional Impressions: Neck pain Shoulder pain, bilateral Muscle spasm Last Vital Signs Date Time Temp Pulse Resp B/P (MAP) Pulse Ox O2 Delivery O2 Flow Rate FiO2 07/06/20 10:30 97.7 70 16 119/80 (93) 99 Room Air Disposition: HOME, SELF-CARE Admit Decision Time: 10:57 Condition: Stable Scripts Naloxone HCl (Narcan) 4 Mg [place] 4 MG NS ONCE for 1 Day, #1 SPRAY Prov: Christine Urban D.O. 07/06/20 Hydrocodone Bit/Acetaminophen 5-325* (NORCO 5-325 TABLET*) 1 Each Tablet 1 TAB ORAL Q4H PRN for For Pain, #10 TAB Prov: Christine Urban D.O. 07/06/20 Patient Instructions: Back Exercises, [id number], Muscle Cramps and Spasms, [id number] Additional Instructions: Instructions for patient/property claim rep: Follow up with your physician in 1-2 days. Do not take [place] or muscle relaxants and drive. They are sedating. Do not combine with alcohol. Follow-up with your doctor sooner if your condition requires a more timely clinical reevaluation. Return to the emergency department immediately if you feel that your condition is worsening or if you have any new or concerning symptoms. Review your discharge instructions and take any prescriptions given as instructed. [facility] PROVIDES FREE OR LOW-COST HEALTH SERVICES TO PEOPLE WHO CAN SHOW PROOF THAT THEY LIVE IN [facility]. TO FIND MORE CLINICS PARTNERED WITH [facility] TO PROVIDE SERVICE, PLEASE CALL . Christine Urban D.O. Jul 06, 2020 10:59
[2020-07-06 11:00] VITALS: BP 119/80
[2020-07-06] MEDS ORDERED: Cyclobenzaprine 10mg Tab ORAL ONE (11:00)
[2020-07-06] MEDS ORDERED: Ketorolac 60mg Inj IM ONE (11:00)
--- NOTE | 2020-07-06 11:09 | NUR ---
ER DISCHARGE NOTE: Patient is cleared to be discharged per ERMD, pt is aox4, on room air, with stable vital signs. pt was given dc and prescription instructions, pt was able to verbalize understanding, pt id band removed without complications. pt is able to ambulate with steady gait. pt took all belongings.
--- NOTE | 2020-07-06 11:09 | NUR ---
Note michelle in EDM - 07/06/20 at 1109 by QLE ER DISCHARGE NOTE: Patient is cleared to be discharged per ERMD, pt is aox4, on room air, with stable vital signs. pt was given dc and prescription instructions, pt was able to verbalize understanding, pt id band and iv site removed without complications. pt is able to ambulate with steady gait. pt took all belongings.
[2020-07-06 11:10] VITALS: BP 119/80
== END 2020-07-06 11:20 | disposition home or self-care (01) ==
LOC: EMR 11:10
DX: M62.830 Muscle spasm of back (principal); M54.2 Cervicalgia; M25.512 Pain in left shoulder; M25.511 Pain in right shoulder; I10 Essential (primary) hypertension; E78.00 Pure hypercholesterolemia, unspecified; E11.9 Type 2 diabetes mellitus without complications; Z88.2 Allergy status to sulfonamides; Z88.8 Allergy status to other drugs, medicaments and biological substances
CPT/HCPCS: 96372; Z7502; 99283